=== PATIENT | male | born 1970 ===

== ENCOUNTER 2017-09-13 12:33 | Emergency (ER) | payer MEDICAID, OTHER ==
[2017-09-13 12:45] VITALS: BP 156/99; PULSE 68; RESP 18; TEMP 98.3; O2SAT 98
[2017-09-13] MEDS ORDERED: Sodium Chloride 0.9% 1,000 ML IV STA (13:23)
--- NOTE | 2017-09-13 13:23 | ED PDOC ---
Syncope/Near Syncope/Dizziness Time Seen by Provider: 09/13/17 13:21 Chief Complaint (Nursing): Dizziness/Lightheaded Chief Complaint (Provider): DIZZY History Per: Patient (47 Y/O MALE H/O VERTIGO HERE WITH SIMILAR SYMPTOMS. STATES HE AWOKE TODAY, TURNED HEAD AND NOTED ROOM SPINNING. DENIES ANY VOMITING. DID NOT TAKE ANY MEDICATIONS FOR SYMPTOMS. DENIES ANY CHEST PAIN/ FEVERS/CHILLS/HEADACHE/WEAKNESS.) Past Medical History Reviewed: Historical Data, Nursing Documentation, Vital Signs Vital Signs: Last Vital Signs Temp 98.3 F 09/13/17 12:42 Pulse 68 09/13/17 12:42 Resp 18 09/13/17 12:42 BP 156/99 H 09/13/17 12:42 Pulse Ox 98 09/13/17 12:42 - Medical History PMH: Denies: Chronic Kidney Disease - Family History Family History: States: Stroke, Hypertension - Home Medications Home Medications: Ambulatory Orders Medication Instructions Recorded Cholecalciferol [Vitamin D 1000 IU] 1,000 iu PO DAILY #30 tab 04/30/17 Meclizine [Meclizine*] 50 mg PO TID PRN tab 04/30/17 Meclizine [Antivert] 1 - 2 tab PO Q6 PRN #24 tab 09/13/17 - Allergies Allergies/Adverse Reactions: Allergies Allergy/AdvReac Type Severity Reaction Status Date / Time No Known Allergies Allergy Verified 04/30/17 13:14 Review of Systems ROS Statement: Except As Marked, All Systems Reviewed And Found Negative Neurological: Positive for: Dizziness Physical Exam - Reviewed Nursing Documentation Reviewed: Yes Vital Signs Reviewed: Yes - Physical Exam Appears: Positive for: Well, Non-toxic, No Acute Distress Head Exam: Positive for: ATRAUMATIC, NORMAL INSPECTION, NORMOCEPHALIC Skin: Positive for: Normal Color, Warm, DRY Eye Exam: Positive for: EOMI, Normal appearance, PERRL ENT: Positive for: Normal ENT Inspection Neck: Positive for: Normal, Painless ROM Cardiovascular/Chest: Positive for: Regular Rate, Rhythm Respiratory: Positive for: CNT, Normal Breath Sounds Gastrointestinal/Abdominal: Positive for: Normal Exam, Bowel Sounds, Soft Back: Positive for: Normal Inspection Extremity: Positive for: Normal ROM Neurologic/Psych: Positive for: Alert, Oriented - Laboratory Results Result Diagrams: 09/13/17 13:49 09/13/17 13:49 - ECG O2 Sat by Pulse Oximetry: 98 - Progress ED Course And Treament: ZOFRAN 4 MG ODT ANTIVERT 25MG X 1 DOSE NS 1 LITER 500 ML PER HOUR Disposition - Clinical Impression Clinical Impression: Vertigo - Patient ED Disposition Is Patient to be Admitted: No - Disposition Referrals: Randolph Hurt MD [Staff Provider] - Disposition: Routine/Home Disposition Time: 16:30 Condition: FAIR Prescriptions: Meclizine [Antivert] 1 - 2 tab PO Q6 PRN #24 tab PRN Reason: Dizziness Instructions: Vertigo (a Type of Dizziness) Forms: [employer] [facility] ([place]), [facility] ED School/Work Excuse
[2017-09-13 14:02] LABS: ALB/GLOB RATIO 1.1 (1.0-2.1); ALBUMIN 4.3 g/dL (3.5-5.0); ALT/SGPT 32 U/L (21-72); AST/SGOT 46 U/L (17-59); BLOOD UREA NITROGEN 22 mg/dl (9-20); CALCIUM 9.2 mg/dL (8.4-10.2); GFR AFRICAN-AMERICAN > 60; GFR NON-AFRICAN AMERICAN > 60
[2017-09-13 14:05] LABS: BASO % 0.1 % (0.0-2.0); EOS % 0.1 % (0.0-4.0); HEMOGLOBIN 14.6 g/dL (12.0-18.0); LYMPH # 0.8 K/uL (1.0-4.3); LYMPH % 9.6 % (20.0-40.0); MEAN CORPUSCULAR HEMOGLOBIN 30.1 pg (27.0-31.0); MEAN CORPUSCULAR HGB CONC 33.1 g/dL (33.0-37.0); MEAN PLATELET VOLUME 9.4 fl (7.2-11.7); MONO # 0.3 K/uL (0.0-0.8); MONO % 3.9 % (0.0-10.0); NEUT % 86.3 % (50.0-75.0); PLATELET COUNT 171 K/uL (130-400); RBC 4.84 Mil/uL (4.40-5.90); RED CELL DISTRIBUTION WIDTH 13.4 % (11.5-14.5); WHITE BLOOD COUNT 8.2 K/uL (4.8-10.8)
[2017-09-13 15:02] LABS: LYMPHOCYTE 9 % (20-50); MONOCYTE 3 % (0-10); NEUTROPHIL 88 % (42-75); PLATELET ESTIMATE NORMAL (NORMAL); TOTAL CELLS COUNTED 100
--- NOTE | 2017-09-14 09:43 | CARD ---
APPROVED REPORT EKG Measurement Heart [id number] <Conclusion> Normal sinus rhythm Normal ECG
== END 2017-09-13 16:39 | disposition home or self-care (01) ==
LOC: H.ER 12:33
DX: R42 Dizziness and giddiness (principal)
CPT/HCPCS: 80053; 83735; 85025; 93005; 96360; 96361; 99285; J7040